=== PATIENT | female | born 1945 | race Caucasian/White ===

== ENCOUNTER → 2020-02-06 | Outpatient (CLI) | payer MEDICARE ==
[~2020-02-06] VITALS: Ht 160 cm; Wt 88.0 kg
[2020-02-06] VITALS (11 sets, daily range): BP systolic 104–141; BP diastolic 45–64
[~2020-02-06] MED LIST: ADVAIR HFA 115-12 G1 INH; BUSPIRONE HCL5 MG PO; DICYCLOMINE HCL10 MG PO; HEARTBURN RELIE20 MG PO; LASIX 20 MG TAB20 MG PO; LIPITOR40 MG PO; MELATONIN3 M1 PO; MICONAZOLE NITR45 G3 TOP; NEURONTIN100 MG PO; OMEPRAZOLE 20 M20 M1 PO; PRESERVISION A1 EACH PO; SELENOMAX200 MCG PO; SINGULAIR 10 MG10 MG PO; TAPAZOLE5 MG PO; VITAMIN B-625 MG PO; ZOFRAN8 MG PO
[2020-02-06 12:14] LABS: HEMATOCRIT 45.1 % (37.0-47.0); HEMOGLOBIN 15.9 gm/dL (12.0-15.0); MCH 30.4 pg (26.0-34.0); MCHC 35.3 g/dL (28.0-37.0); MCV 86.1 fL (80.0-100.0); MPV 7.6 fl. (7.2-11.1); RBC 5.24 mil/uL (4.20-5.00); RDW-CV 12.9 % (10.5-14.5); WBC 6.7 thou/uL (4.0-11.0)
[2020-02-06 12:23] LABS: PROTIME 10.8 Seconds (9.20-11.50)
[2020-02-06 12:31] LABS: ANION GAP 4 mmol/L (7-16); BUN 12 mg/dL (7-18); CALCIUM 9.7 mg/dL (8.5-10.1); CHLORIDE 102 mmol/L (98-107); CO2 32 mmol/L (21-32); CREATININE 0.9 mg/dL (0.6-1.3); GLUCOSE 106 mg/dL (70-99); POTASSIUM 3.6 mmol/L (3.5-5.1); SODIUM 138 mmol/L (136-145)
[2020-02-06 12:36] LABS: ALBUMIN 3.9 g/dL (3.4-5.0); ALKALINE PHOSPHATASE 137 U/L (46-116); CHOLESTEROL 191 mg/dL (<200); HDL CHOLESTEROL 45 mg/dL (>40); LDL CHOLESTEROL 94 mg/dL (<100); SERUM ASSESSMENT Clear; SGOT 28 U/L (15-37); SGPT 43 U/L (30-65); TC:HDL 4.2 Ratio (Not establshd); TOTAL BILIRUBIN 0.5 mg/dL (<0.1-1.0); TOTAL PROTEIN 7.2 g/dL (6.4-8.2); TRIGLYCERIDE 261 mg/dL (<150); VLDL 52 mg/dL (<40)
--- NOTE | 2020-02-06 19:18 | EKG ---
[place] [address] ELECTROCARDIOGRAM REPORT Name: BARRY TENA Room: [facility]#: [id number] Admission: 02/06/20 Attend Phys: Trino Gutierrez, Discharge: Date of : 43 Date of Service: 02/06/20 1203 Report #: [id number] THIS REPORT FOR: //name// [facility] Test Date: 2020-02-06 Test Time: 12:03:56 Pat Name: BARRY TENA Department: Room: Gender: Vp Director Of Finance: : 1945 Requested By: Trino Gutierrez Order Number: [id number] Toro MD: Trino Gutierrez Measurements Intervals [place] Rate: 70 P: 81 NV: 206 QRS: 44 QRSD: 76 T: 62 QT: 427 QTc: 461 Interpretive Statements Sinus rhythm Low voltage, precordial leads Anteroseptal infarct, old, possible No previous ECG available for comparison Electronically Signed On 02-06-2020 17:45:12 CDT by Trino Gutierrez [email or web address] <ELECTRONICALLY SIGNED> By: Trino Gutierrez MD, [facility] 02/06/20 1745 1203 1203 Trino Gutierrez MD, [facility] /EPI
--- NOTE | 2020-02-13 14:17 | CARD ---
[address] [address] CARDIAC CATH REPORT Name: [facility] TENAL [id number]: 02/06/20 Attend Phys: Trino Gutierrez MD Discharge: Date of : 43 Report #: [id number] THIS REPORT FOR: //name// cc: Melly Llamas Amber B. DO ~ ADDENDUM APPROVED REPORT Study performed: 02/06/2020 14:35:38 Patient Details Patient Status: Out-Patient Room #: The patient is a 74 year-old female Event Personnel Trino Gutierrez Client Technical Specialist, Hermilo Harmon RN RN, Stephanie Stevens RTR Scrub, Vannessa Parks RTR Monitor Procedures Performed Art Access - R femoral artery Left Heart Cath w/or w/o Coronaries Hemostasis w/ Mynx Procedure Narrative The patient was brought electively to the Cardiac Catheterization Laboratory and was prepped and draped in a sterile manner. The right femoral was infiltrated with 2% Lidocaine subcutaneous anesthesia. A [place] 6 FR sheath was inserted into the right femoral artery. Coronary angiography was performed using coronary diagnostic catheters. The right coronary system was accessed and visualized with a Diagnostic 6 Fr JR 4 catheter. The left coronary system was accessed and visualized with a Diagnostic 6 Fr JL 4 catheter. The left ventricle was accessed and visualized with a Diagnostic 6 Fr Pigtail catheter. Left ventricular/Aortic Valve gradient assessed via catheter pullback. Left ventriculogram was performed in [facility] projection. Closure device was deployed with a 6 Fr Mynx. The patient tolerated the procedure well and there were no complications associated with the procedure. There was no hematoma. Intraoperative Conscious Sedation No sedation was given. Case start time was 15:14 and case end was 15:30. Fluoro Time: 1.3 minutes Dose: DAP 54146 cGycm2 631 mGy Contrast Type and Amount: Visipaque [address] [place] [address] CARDIAC CATH REPORT Name: BARRY TENA Room: [facility]#: [id number] Admission: 02/06/20 Attend Phys: Trino Gutierrez MD Discharge: Date of : 43 Report #: [id number] Coronary Angiography The patient's coronary anatomy is left dominant. Diagnostic Cath Left Main The left main coronary artery is normal and bifurcates into an LAD and circumflex coronary artery. LAD The left anterior descending coronary artery has some moderate 30% plaquing in the midportion. The remainder of the vessel is free of significant disease. Diagonal 1 The first diagonal is normal. Circumflex The circumflex coronary artery has some minimal 10% plaquing in the midportion of the vessel. OM1 The first obtuse marginal branch is normal. OM2 The second obtuse marginal branch appears normal. L PDA The left PDA is normal. Right Coronary The right coronary artery is a small nondominant vessel that is mildly plaqued. Left Ventriculography The left ventricle is normal in size with normal contractility. The left ventricular ejection fraction is estimated to be 65%. Left ventricular wall motion abnormalities are not present. Hemodynamics The aortic pressure is 160/58 mmHg with a mean of 69 mmHg. The left ventricular pressure is 161/9 mmHg with a mean of mmHg. The left ventricular end diastolic pressure is 25 mmHg. Conclusion 1. Minimal coronary artery plaquing without hemodynamically significant stenosis. 2. Mildly elevated left ventricular end-diastolic pressure. 3. Normal left ventricular systolic function. Recommendations 1. Continue medical management and risk factor modification. <ELECTRONICALLY SIGNED> By: Trino Gutierrez MD, FACC 02/13/20 1417 16 1417Micdileep Gutierrez MD, FACC /INF
== END | disposition home or self-care (01) ==
LOC: M.CL 10:48
PROVIDERS: ATTEND Internal Medicine Cardiovascular Disease
DX: R94.39 Abnormal result of other cardiovascular function study (principal); R07.9 Chest pain, unspecified; I25.10 Atherosclerotic heart disease of native coronary artery without angina pectoris; I50.1 Left ventricular failure, unspecified; Z98.890 Other specified postprocedural states; Z79.899 Other long term (current) drug therapy; Z90.49 Acquired absence of other specified parts of digestive tract; Z98.41 Cataract extraction status, right eye; Z98.42 Cataract extraction status, left eye; Z87.891 Personal history of nicotine dependence